=== PATIENT | female | born 1985 | race Two or more races ===

== ENCOUNTER 2017-01-05 19:00 | Emergency (ER) | payer OTHER ==
--- NOTE | 2017-01-05 20:30 | ER NURSING DOCUMENTATION ---
Nurse's Notes [facility] Name:Carola Kaplan Age:31 yrs Sex:Female :1985 Arrival Date:01/05/2017 Time:19:00 Bed1 Private MD:Physician, No Diagnosis:Hypoxia Presentation: 01/05 19:08 Presenting complaint: Patient states: up to altitude today, checked pulse oximetry and lb noted to be 82-83%. c/o headache. Transition of care: patient was not received from another setting of care. Notified ED Physician of Dr. Andre notified. 19:08 Acuity: JORDAN 3 lb 19:08 Method Of Arrival: Walk In lb Triage Assessment: 19:11 General: Appears in no apparent distress, Behavior is appropriate for age, pleasant. lb Pain: Complains of pain in face Pain does not radiate. Pain currently is 2 out of 10 on a pain scale. Respiratory: Airway is patent Trachea midline Respiratory effort is even, unlabored, Respiratory pattern is regular, Breath sounds are clear bilaterally. Reports low pulse ox Onset: The symptoms/episode began/occurred this morning, the patient has moderate shortness of breath. Historical: - Allergies: No known drug Allergies; - Home Meds: 1. spiriva 2. Advair Diskus Inhl 3. Zithromax Oral 4. Singulair Oral 5. ethambutol oral - PMHx: COPD; - PSHx: Hip surgery; - Tetanus: < 10 years. - Ebola Screening: : Patient denies exposure to infectious person. Patient denies travel to an Ebola-affected area in the 21 days before illness onset. . - Social history: Smoking status: Patient states was never smoker of tobacco. Patient/guardian denies using alcohol. Screenin:12 Infectious Disease Risk None. Abuse screen: Denies threats or abuse. Denies injuries lb from another. Nutritional screening: No deficits noted. Assessment: 19:12 See Triage Assessment done by same RN. Cardiovascular: No deficits noted. lb 20:29 Reassessment: 1927 Mikaela called for o2 setup. will be in to see pt. lb Vital Signs: 19:02 BP 130 / 72 LA Sitting (auto/reg); Pulse 129 LA; Temp 98.2(O); Pulse Ox 81% on R/A; em3 Weight 83.91 kg (R); Height 5 ft. 5 in. (165.10 cm) (R); Pain 2/10; 19:07 Pulse 122; Resp 16 S; Pulse Ox 96% on 3 lpm NC; em3 20:28 BP 109 / 80; Pulse 117; Resp 20; Pulse Ox 96% 3 lpm ; Pain 0/10; lb 19:02 Body Mass Index 30.79 (83.91 kg, 165.10 cm) em3 ED Course: 19:01 Patient arrived in ED. ma 19:01 Physician, Nicole is Private Physician. [facility] 19:07 Natalia Dillon is Primary Nurse. 19:07 Ganga Andre MD is Attending Physician. ms 19:07 Valuables Remains with patient Patient has correct armband on for positive em3 identification. Bed in low position. Call light in reach. Side rails up X 1. 19:07 Oxygen Response to oxygen therapy: symptoms improved. Oxygen Oxygen administration via em3 nasal cannula @ 3L/min. 19:09 Triage completed. Administered Medications: No medications were administered Outcome: 19:46 Discharge ordered by . ms 20:28 [facility]charged to [facility] 20:28 Condition: stable 20:28 Discharge Assessment: Patient awake, alert and oriented x 3. No cognitive and/or functional deficits noted. Patient verbalized understanding of disposition instructions. 20:28 Discharge instructions given to patient, Instructed on discharge instructions, follow up and referral plans. 20:29 Patient left the ED. 06 15:32 Discharge F/U Call: Spoke with: other: Name: person who answered the phone hung up as st soon as I asked for Carola Signatures: Mireille Arita RN Ganga Condon MD MD ms Julio Anne 3 Natalia Dillon Nilsa Leon [facility]
--- NOTE | 2017-01-05 20:30 | ER PHYSICIAN DOCUMENTATION ---
Physician Documentation [facility] Name:Carola Kaplan Age:31 yrs Sex:Female :1985 Arrival Date:01/05/2017 Time:19:00 Bed1 Private MD:Physician, No ED Ganga Roberts Disposition: 01/05 19:46 Critical Care: not applicable. sc Disposition: 01/05/17 19:46 Discharged to Home/Self Care. Impression: Hypoxia. - Condition is Good. - Discharge Instructions: DYSPNEA. - Medical Reconciliation form form. - Follow up: Emergency Department; When: As needed; Reason: Worsening of condition. - Problem is an ongoing problem. - Symptoms have improved. HPI: 19:39 This 31 yrs old Female presents to ER via Walk In with complaints of sc Breathing Difficulty. 19:39 The patient has shortness of breath with light activity. Onset: The symptom(s)/episode sc began/occurred at an unknown time. Duration: The symptoms are continuous. Associated signs and symptoms: The patient has no apparent associated signs or symptoms. Severity of symptoms: At their worst the symptoms were very mild. The patient has experienced similar episodes in the past, chronically. Patient with MAC and bronchiectasis and well versed in her complicated pulmonary toilet visiting EP from [place] and checked her pulseox which was 80-85. No symptoms of dyspnea. Reports no need for medical eval, just wants assistance in obtaining oxygen for her stay here.. Historical: - Allergies: No known drug Allergies; - Home Meds: 1. spiriva 2. Advair Diskus Inhl 3. Zithromax Oral 4. Singulair Oral 5. ethambutol oral - PMHx: COPD; - PSHx: Hip surgery; - Tetanus: < 10 years. - Ebola Screening: : Patient denies exposure to infectious person. Patient denies travel to an Ebola-affected area in the 21 days before illness onset. . - Social history: Smoking status: Patient states was never smoker of tobacco. Patient/guardian denies using alcohol. ROS: 19:43 Constitutional: Negative for fever, chills, and weight loss. sc Eyes: Negative for injury, pain, redness, and discharge. ENT: Negative for injury, pain, and discharge. Neck: Negative for injury, pain, and swelling. Cardiovascular: Negative for chest pain, palpitations, and edema. Abdomen/GI: Negative for abdominal pain, nausea, vomiting, diarrhea, and constipation. Back: Negative for injury and pain. Skin: Negative for injury, rash, and discoloration. 19:43 Neuro: Negative for headache, weakness, numbness, tingling, and seizure. sc 19:43 Respiratory: Positive for shortness of breath. Exam: Constitutional: This is a well developed, well nourished patient who is awake, alert, and in no acute distress. Head/Face: Normocephalic, atraumatic. Eyes: Pupils equal round and reactive to light, extra-ocular motions intact. Lids and lashes normal. Conjunctiva and sclera are non-icteric and not injected. Cornea within normal limits. Periorbital areas with no swelling, redness, or edema. Chest/axilla: Normal chest wall appearance and motion. Nontender with no deformity. No lesions are appreciated. Abdomen/GI: Soft, non-tender, with normal bowel sounds. No distension or tympany. No guarding or rebound. No evidence of tenderness throughout. 19:43 Back: No spinal tenderness. No costovertebral tenderness. Full range of motion. sc 19:43 Cardiovascular: Rate: tachycardic, Rhythm: regular. 19:43 Respiratory: the patient does not display signs of respiratory distress, Respirations: shallow respirations, Breath sounds: no acute changes. Vital Signs: 19:02 BP 130 / 72 LA Sitting (auto/reg); Pulse 129 LA; Temp 98.2(O); Pulse Ox 81% on R/A; em3 Weight 83.91 kg (R); Height 5 ft. 5 in. (165.10 cm) (R); Pain 2/10; 19:07 Pulse 122; Resp 16 S; Pulse Ox 96% on 3 lpm NC; em3 20:28 BP 109 / 80; Pulse 117; Resp 20; Pulse Ox 96% 3 lpm ; Pain 0/10; lb 19:02 Body Mass Index 30.79 (83.91 kg, 165.10 cm) em3 MDM: 19:08 Patient medically screened. sc 19:44 Differential diagnosis: Chronic Obstructive Pulmonary Disease. Antibiotic sc administration: Not indicated. Data reviewed: vital signs, nurses notes, and as a result, I will discharge patient. Data interpreted: Pulse oximetry: on room air is 82 %. Plan: O2 by [place] applied. Counseling: I had a detailed discussion with the patient and/or guardian regarding: the historical points, exam findings, and any diagnostic results supporting the discharge/admit diagnosis, the need for outpatient follow up, to return to the emergency department if symptoms worsen or persist or if there are any questions or concerns that arise at home. Dispensed Medications: No medications were administered Signatures: Ganga Andre MD MD sc Bollock, Lynda lb
== END 2017-01-05 20:30 | disposition home or self-care (01) ==
LOC: ER 19:00
DX: R09.02 Hypoxemia (principal); R51 Headache; J44.9 Chronic obstructive pulmonary disease, unspecified; R00.0 Tachycardia, unspecified; Z79.899 Other long term (current) drug therapy; Z99.81 Dependence on supplemental oxygen
CPT/HCPCS: 99284